=== PATIENT | male | born 1945 | race Caucasian/White ===

== ENCOUNTER 2025-08-03 12:14 | Emergency (ER) | payer OTHER, BC ==
[~2025-08-03] VITALS: Ht 170.2 cm; Wt 72.9 kg
[2025-08-03] MEDS: NS (Normal Saline) 0.9% 1,000 ML IV SCH (14:41)
[2025-08-03 14:52] LABS: BASO # 0.0 10^3/uL (0.0-0.2); BASO % 0.4 % (0.0-1.0); EOS # 0.1 10^3/uL (0.0-0.5); EOS % 1.3 % (0.0-3.0); LYMPH # 0.8 10^3/uL (1.5-5.0); LYMPH % 9.5 % (24.0-44.0); MONO # 0.7 10^3/uL (0.0-0.8); MONO % 9.4 % (2.0-8.0); NEUTROPHILS # 6.3 10^3/uL (1.5-8.5); NEUTROPHILS % 79.1 % (36.0-66.0); PLATELET COUNT, AUTOMATED 279 10^3/uL (150-450)
[2025-08-03 15:14] LABS: ALT/SGPT 10 U/L (7.0-40); AST/SGOT 19 U/L (<34); CALCIUM LEVEL 8.5 MG/DL (8.3-10.6); CARBON DIOXIDE LEVEL 29 MMOL/L (20-31); CHLORIDE LEVEL 105 MMOL/L (98-107); CREATININE FOR GFR 1.02 MG/DL (0.70-1.30); GLOMERULAR FILTRATION RATE 74.8 (>42); POTASSIUM SERUM 4.8 MMOL/L (3.5-5.1); SODIUM LEVEL 143 MMOL/L (136-145)
[2025-08-03] MEDS ORDERED: ISOVUE-370 76% 100 ML VIAL As Ordered ONE (15:16)
[2025-08-03] MEDS: NS 500 ML IV ONE (15:45)
[2025-08-03] MEDS: GASTROGRAFIN SOLUTION 30 ML PO ONE (16:31)
[2025-08-03 18:48] VITALS: BP 119/72; TEMP 98.3; O2SAT 97
== END 2025-08-03 18:49 | disposition home or self-care (01) ==
LOC: M ED 12:14
DX: K80.20 Calculus of gallbladder without cholecystitis without obstruction (principal); Z93.1 Gastrostomy status; I10 Essential (primary) hypertension; J44.9 Chronic obstructive pulmonary disease, unspecified; Z99.2 Dependence on renal dialysis; Z87.891 Personal history of nicotine dependence
CPT/HCPCS: 74018; 74177; 76705; 80048; 80076; 83690; 85025; 96360; 96361; 99284; Q9963; Q9967